=== PATIENT | female | born 1960 | race Caucasian/White ===

== ENCOUNTER 2023-06-19 10:55 | Outpatient (AMB) | payer BC, SELFPAY ==
--- NOTE | 2023-06-19 12:19 | AM.OFFWIN_ITS ---
Intake Vital Signs 06/19/23 12:27 Weight 164 lb BP 150/90 H Blood Pressure Location Lt brachial Position Sitting Pulse 72 Pulse Source Pulse Oximeter Temp 98.7 F Temp Source Temporal Artery Scan Pulse Oximetry (%) 96 Oxygen Delivery Method Room Air Intake Visit Reasons: [employer] Swollen Throat, Nausea [phone] Intake Note: Patient here for sore throat, swollen glands, left ear pain, body aches and nausea which has been present for 3 days. Patient Tobacco Use Status: Never used Tobacco Allergies No Known Allergies Allergy (Verified 06/19/23 12:20) Do you need a note to return to daycare/school/sports/work: No HPI HPI Comments History of Present Illness Details 62 y/o female patient who presents to [facility] in clinic with c/o sore- throat x 3 days. Denies fevers, chills, nausea or vomiting. Denies any recent sick contacts. She has not taken any medicine. PFSH Social History Patient Tobacco Use Status: Never used Tobacco Review of Systems Const All systems reviewed & are unremarkable except as noted in HPI and below Physical Exam Vital Signs: Last Vital Signs Temp 98.7 F 06/19/23 12:27 Pulse 72 06/19/23 12:27 BP 150/90 H 06/19/23 12:27 Pulse Ox 96 06/19/23 12:27 Oxygen Delivery Method Room Air 06/19/23 12:27 Const General: comfortable and no acute distress Orientation/consciousness: patient oriented x3 HEENT Head: Yes normocephalic Ears: external ears normal and TM's normal bilaterally General nose exam: Normal nasal mucous membranes and turbinates present Face and sinus: Yes sinuses nontender Mouth: Abnormal oral and palatal mucosa present erythematous and white patches Throat: Yes posterior oropharynx normal Resp Effort & Inspection: normal respiratory effort and able to speak in complete sentences Auscultation: clear to auscultation bilaterally, no crackles, no rales, no rhonchi and no wheezes Cardio Rate: regular rate Rhythm: regular rhythm Neuro General: patient oriented x3 Results AMB Rapid Strep AMB Rapid Strep Positive Last Edit by Robert Sotomayor on 06/19/23 12:40 Results Reviewed Results Reviewed: Laboratory Last Values Strep Scn Rapid Clinic Positive 06/19/23 12:40 Assessment & Plan Assessment & Plan (1) Acute streptococcal pharyngitis: Code(s): J02.0 - Streptococcal pharyngitis Plan: - Take medicine as directed - Warm fluids with honey - Rest. - OTC sore throat remedies. Medications: New penicillin V potassium 500 mg PO BID 10 days 20 tabs 0RF J02.0 - Streptococcal pharyngitis Coding Level of Care Code Est Pt Level 3 (08116) Diagnoses Acute streptococcal pharyngitis J02.0 Time Spent (min) 15
[2023-06-19 12:27] VITALS: BP 150/90; PULSE 72; TEMP 37.1; O2SAT 96
== END 2023-06-19 13:39 | disposition home or self-care (01) ==
PROVIDERS: PCP Internal Medicine Nephrology; Visit Provider Nurse Practitioner Family
DX: J02.0 Streptococcal pharyngitis (principal); J02.9 Acute pharyngitis, unspecified
CPT/HCPCS: 87880; 99213